=== PATIENT | female | born 1960 | race Caucasian/White ===

== ENCOUNTER 2021-03-21 13:34 | Emergency (ER) | payer OTHER ==
[2021-03-21 21:05] VITALS: BP 154/87
== END 2021-03-21 21:08 ==
LOC: ER 13:34
PROVIDERS: Nurse Practitioner
DX: F91.9 Conduct disorder, unspecified (principal); Z20.822 Contact with and (suspected) exposure to COVID-19; Z88.8 Allergy status to other drugs, medicaments and biological substances

== ENCOUNTER 2021-03-21 15:08 | Inpatient (IN) | payer OTHER ==
[~2021-03-21] VITALS: Ht 160 cm; Wt 83.9 kg
--- NOTE | 2021-03-21 22:52 | NUR ---
Pt admitted to unit from ED at 2112 this shift. Pt was transported to unit via w/c but is ambulatory. Pt expressed desire to voluntarily sign into unit for treatment for anxiety and "Want to get my medications straightened out". Pt is calm et cooperative. AOX4. VSWNL. Health assessment and skin assessment with no abnormalities noted at present time. Ambulates ad agatha with steady gait. Health history obtained and pt appears to be a valid historian. Hospitalist GEAR GRINDER and wallet assembler notified of pt admission to unit. Orders obtained and entered. Pt was given a tour of the unit and informed of schedule and rules. Pt verbalized understanding. Discussed that pt was being admitted for panic disorder for multiple visits to ED in the past week. Pt explains that she has been trying to get in with a psychiatrist but cannot get an appt. quickly so ends up going to the ED for treatment or calling her PCP. Pt expresses a desire to get her medications right so that she "doesn't have to feel like this anymore. I want to feel normal". Pt denies SI/HI/AVH at present time. Currently resting in bed with eyes open. Will continue to monitor per unit protocol.
[2021-03-21 23:48] VITALS: BP 138/91
--- NOTE | 2021-03-22 05:24 | NUR ---
Assumed care of patient at 2112 this shift upon admission to unit. Pt calm et cooperative this shift. Took medications whole without difficulty. Ambulates the halls ad agatha with steady gait. Independent with all cares and toileting. Isolated in room most of shift. Pt spoke with family et gave them code for calling the unit. HS meds were given to patient when entered by pharmacy due to patient's belief that she would be unable to sleep this shift without medication. Pt denies SI/HI/AVH at present time. Currently resting in bed with eyes closed. Will continue to monitor per unit protocol.
--- NOTE | 2021-03-22 07:15 | NUR ---
03-22-2021--699--First met patient when she was walking down the ulloa displaying a steady gait but was visibly shaking. She was walking trying to get her anxiety under control. We tried deep breathing as it appeared she was breathing too fast and could hyperventilate. She has a difficult time keeping her breathing slow. (When she is more calm and can concentrate we will practice deep breathing agian.) Spoke with RNKalee re: medications for patient. Patient states she already has had her seroquel. The RN stated she didn't have meds prescribed until 8:00 AM. Spoke to Yumiko TORRES who offered patient a walker to use if she was feeling unsteady. She declined. RN explained the BISQUE KILN PLACER will see her as soon as she comes in and might be able to give her something to calm her. Patient reports this has been going on for at least 6 months. I inquired if she had a doctor or therapist. She said her doctor and her therapist told her "you just need to learn how to control it yourself". She reports she feels afraid but can't pinpoint any thing she is afraid of. I told her I would be back to see her later and we would do an assessment. I will read the patient's chart.
[2021-03-22 09:42] VITALS: BP 121/79
--- NOTE | 2021-03-22 10:40 | NUR ---
03-22-2021--1000--Met with patient to gather information for the completion of a psychosocial assessment. Dx from referring hospital was "anxiety". Patient states she has had a dx of MDD and NATHAN for at least 30 years. She reports she has a sister and brother who have both had an anxiety disorder. She states her sisters lasted for approx. 5 years and she is afraid she is going to feel anxious for a long time like that. She resides with her 84 y/o mother and has two daughters. Her mother Vikki Wilson ([phone]) is listed as the ER contact. She talked to her mother and daughters last night and gave them the security code. We discussed having her sign a DPOA with someone close to her. Peterson came in to get her to go to a group and provided her with a brochure. I will talk to her at a later time to discuss completing this document. She is the DPOA for her mother and so is comfortable with what it means. Past medical hx includes Anxiety, Depression, GERD and HTN. She states her anxiety hasn't been this bad before. She has a therapist, sample case porter and a psychiatrist from [facility]. Her therapist is Joycelyn Huff. Her psychiatrist is Dr. Nath. She reports she doesn't remember her CM's name but she did attend the [facility] program (out patient group) either on Fridays or Mondays from to . She states since her anxoiety has become more severe she hasn't gone. They told her she had to be able to sit still. Her PCP is Dr. Tompkins. She states she has gone to him to get psychotropics because she can't get in to see her psychiatrist. She denies SI/HI attempts or plans. She continually paced during our session and stated repeatedly "I feel so scared. I feel terrified". "Do you have to leave?" "I'm scared". She couldn't identify what she was afraid or scared of. She reports her therapist was doing cognitive/behavioral therapy with her and she tried EMDR. She states "they didn't work on me". (Worker suggests Dialectal Behavioral Therapy--DBT--may be more effective with this patient.) Another dx to consider with this patient is a Cluster B Personality Disorder, Borderline Personality Disorder--F60.3 (which is treated most effectively with DBT). She displays characteristics such as impulsivity, frantic efforts to avoid abandonment (real or imagined), affective instability, marked affective instability and marked reactivity of mood (anxiety episodes) among other indicators. She reports having been three times. Patient reports no abuse in her family of origin or in other realtionships in which she has been involved. She denies any chronic pain or traumatic incidents that could have precipitated this most recent anxiety episode.
--- NOTE | 2021-03-22 13:14 | NUR ---
Assumed pt care at 0700. Pt was alert and oriented x4. Assessments completed, vss. Anxious and restless upon assesments. Denies si/hi. Denies pain. Took meds whole no difficulty noted. Ambulates with a steady gait. Continent of bowel and bladder. Makes needs known to staff. Pt is up at agatha. Independent with care. At this time pt is ambulating the hallways. Will continue to monitor pt.
--- NOTE | 2021-03-22 14:31 | NUR ---
03-19-2021--1230--Made a referral to [facility] for patient. Her information in her hard chart states she has [employer]. Patient states she receives disability but isn't sure of it is SSI or SSDI. Stated her case work aide at [facility] (whose name she can't remember) had been helping her fill out paperwork for Medicaid or insurance she didn't remember which. Requested assistance in determining if she already has Medicaid or not.
[2021-03-22 19:45] VITALS: BP 139/94
--- NOTE | 2021-03-23 05:35 | NUR ---
Assumed care of patient at 1900. Pt calm et cooperative this shift. Took medications whole without difficulty. Ambulates the halls ad agatha with steady gait. Spoke on the phone with several relatives early in the shift. Spent early part of shift socializing with peers in dayroom. VSWNL. Health assessment with no abnormalities noted at present time. Pt denies SI/HI/AVH at present time. PRN Seroquel given with HS meds for anxiety. Currently resting in bed with eyes closed. Will continue to monitor per unit protocol.
[2021-03-23 09:31] VITALS: BP 121/56
--- NOTE | 2021-03-23 09:41 | NUR ---
Patient has been anxious this morning. She said she is afraid she will never get better. Patient said walking helps with her anxiety. She has been pacing the halls every so often. She took her morning medications whole with no difficulty. Patient has been in the dayroom, aside from when she is walking the halls. She is participating in the morning group session. Her vital signs are WNL. She denies having pain, but said that her legs are sore from all the pacing she has been doing. Denies thoughts of SI/HI. Will continue to monitor patient for further changes.
[2021-03-23 19:19] VITALS: BP 104/64
--- NOTE | 2021-03-24 00:42 | NUR ---
At the onset of shift mgr pt was sitting calmly in day room socializing with female peer. This shift pt was pleasant and cooperative. Pt endorsed anxiety, but stated it was better than the previous shift. Pt was able to sit and socialize instead of pace the unit. Pt did request hyrdroxyzine with her HS meds. Pt was compliant with medication and vital signs. Pt denied depression, SI, HI and AVH. Pt is a low fall risk. Will continue to monitor.
[2021-03-24 08:37] VITALS: BP 122/78
--- NOTE | 2021-03-24 09:54 | NUR ---
New admit to [facility] for panic disorder. Initial consult for pt reporting decreased appetite. Ate 25% of initial meal on unit but now eating 75-100% of meals. No reported wt loss. BMI 32. On regular diet. Presents at low nutrition risk
[2021-03-24 17:42] VITALS: BP 136/84
--- NOTE | 2021-03-24 18:06 | NUR ---
REQUESTED AND RECEIVED VISTARIL 50MG PO PRN AT 0830 FOR ANXIETY RATED A 10/10-ENDORSING THOUGHTS OF DOOM,SHORTNESS OF BREATH,FEELING "SHAKEY ON THE INSIDE" AND INABILITY TO SIT STILL ANXIETY SYMPTOMS. INITIALLY NOT RECEPTIVE TO ATTEMPTING ANY DEEP BREATHING OR GROUNDING ACTIVITIES BUT WITH SUPPORT DID SIT AND DO DEEP BREATHING WITH THIS NURSE FOR 3-4 MINUTES BEFORE GETTING UP TO RESUME PACING IN HALLWAYS. DENIES SI/SH. HAS ATTENDED ALL SCHEDULED ACTIVITIES WITH GOOD LEVEL OF PARTICIPATION.-SOCIAL WITH FEMALE PEERS DURING FREE TIME AND ABLE TO ID THAT VISITING WITH OTHERS HELPS. APPEARS LESS ANXIOUS/COMFORTABLE IN MILL AND ABLE TO SIT AND DO WORD SEARCHES,WATCH TV OR LOOK AT MAGAZINE WITH FEMALE PEER FOR LONG STRETCHES OF TIME. GAIT STEADY WITHOUT ASSISTIVE DEVICES.
--- NOTE | 2021-03-24 18:15 | NUR ---
AT APPROX 1015 WAS DIRECTED BY STAFF TO ROOM D/T MEDICAL EMERGENCY ON UNIT WHICH TOOK PLACE IN DAYROOM WITH ALL PTS PRESENT AT GROUP- WHEN STAFF ENTERED ROOM 5-10 MINUTES LATER TO COMMPLETE ROUNDS WAS FOUNDS CRYING LOUDLY IN ROOM-SITTING IN CORNER OF BATHRROM ROCKING BACK AND FORTH-STATES "I'M HAVING A PANIC ATTACK-ITS TOO STRESSFUL HERE-MY ANXIETY WILL NEVER GET BETTER HERE-CAN I SIGN MYSELF OUT NOW" DID CALM AFTER APPROX 30-40 MINUTES 1;1 WITH NURSING STAFF AND EVENTUALLY ACKNOWLEDGES THAT SHE NEEDS TO STAY IN HOSPITAL UNTIL FEELING MORE STABLE. DID ATTEMPT DEEP BREATHING BUT CONTINUES TO RATE ANXIETY 10/10-REQUESTING PRN VISTARIL EXPLAINED IT WAS TO EARLY TO GIVE AND BEGAN TO [place]-DR WAGNER CONTACTED AND ORDERS RECEIVED FOR VSTARIL 50MG PO X1 NOW GIVEN AT APPROX 1110 WITH PT REPORTED DECREASE IN ANXIETY TO A 6.5 RATING APPROX 1 HR LATER.
[2021-03-24 21:03] VITALS: BP 130/87
--- NOTE | 2021-03-24 23:32 | NUR ---
At onset of night order selector pt was sitting in day room watching TV. This shift pt was alert and oriented x4. Pt spent free time socializing with a female peer. Pt appeared anxious. Pt was cooperative with medications and vital signs. Pt was tearful when speaking with nurse. Pt explained that her anxiety is worse in the morning and she is already worried about how she will feel when she wakes up tomorrow. RN explained to pt that she does have hydroxyzine PRN to help with morning anxiety and if she feels she needs the medication she can ask for it. Pt also requested trazodone stating that she has been taking it for so long that she cannot fall asleep without it. RN received a one time order for 100mg Trazodone. Overall, pt was pleasant and cooperative. Pt is a low fall risk. Will continue to monitor.
[2021-03-25 07:30] VITALS: BP 108/72
--- NOTE | 2021-03-25 13:34 | NUR ---
Asleep when entered room. Alert and orientated X4. States she is anxious 12/27, requesting meds. Explained that she would be receiving meds at 0800. Denies SI/HI. Unable to give reason for anxiety. Quetiapine given later in AM for anxiety 01/26. Dr. Carr notified, will meet with pt. Breath sounds clear. Reg HR auscultated. Color pink with brisk capillary refill and palpable peripheral pulses. Independent with voiding. Active bowel sounds over soft, rounded abdomen. Ambulates with regular, steady gait. Daughter called for update. Spoke with pt, would like for me to give update. Currently participating in group. Sitting quietly at table most of AM.
[2021-03-25 19:45] VITALS: BP 108/72
[2021-03-25 21:56] VITALS: BP 145/92
--- NOTE | 2021-03-26 00:20 | NUR ---
PATIENT CARE WAS RESUMED AT 1900. SHE IS ALERT AND ORIENTED. MODERATED ASSIST WITH CARE.ABLE TO VERBALISE SOME CONCERN. SHE IS CONTINENT OF BOWEL AND BLADDER. DENIES PAINS/SI/AVH/HI.LUNGS ARE CLEAR BS ACTIVE X4 QUADS.SHE TOOK HER MEDS WHOLE.BED IS LOW AND LOCKED. SHE C/O MORNING ANXIETY AND A GOAL TO OVERCOME IT. CONTINUE CARE AND MONITOR
[2021-03-26 08:28] VITALS: BP 147/101
[2021-03-26 10:20] VITALS: BP 147/101
--- NOTE | 2021-03-26 12:28 | NUR ---
RESUMMED CARE FROM OVERNIGHT SHIFT THIS AM, PATIENT SITTING IN DAY ROOM QUIET. PATIENT ALERT ORIENTED TIMES 4 PATIENT DENIES SI/HI/AH/VH AT PRESENT. PATIENT DENIES DEPRESSION BUT HAS ANXIETY WHICH SHE RATES A 10; SHE STATES SHE DOES NOT KNOW WHY SHE HAS ANXIETY. PATIENTS ABDOMEN SOFT BOWEL SOUNDS PRESENT, PATIENTS LUNGS CLEAR. PATIENT CALM COOPERATIVE PARTICIPATES IN GROUPS WILL CONTINUE TO MONITOR PATIENT FOR SAFETY AND BEHAVIORS.
--- NOTE | 2021-03-26 17:22 | NUR ---
ELSIE was able to to speak to the Pt's therapist at [facility], Joycelyn Huff. Joycelyn informed the Pt did not have a CM. Joycelyn is willling to see the Pt 2x per week if unable to get into a PHP. Joycelyn believed the Pt was in an IOP but was unsure. Joycelyn stated the Pt had and appointment today but rescheduled to 04/01/2021 @12. Pt sees Steve Morales APRN for medication management. A follow up appointment was scheduled for 04/08/2021 @ 0915. ELSIE was informed that a recommendation would need to be on the Pt's discharge for IOP or PHP and [facility] would get the Pt signed up for their program Pt will discharge home 03/28/2021 @ 1300. Pt'f family will transport
[2021-03-26 19:37] VITALS: BP 130/81
[2021-03-26 19:42] VITALS: BP 130/81
--- NOTE | 2021-03-27 02:50 | NUR ---
PATIENT CARE WAS STRATED 1900. SHE WAS SITTING IN THE DAY AREA SOCIALIZING WITH HER ROOMATE. SHE IS ABLE TO VERBALIZE HER CONCER. SHE IS CONTININET OF BOWEL AND BLADDER. AMBULATES AND SHE TAKES HER MEDS WHOLE. SHE DENIES PAINS,AVH/SI/HI. CAME BY AND VISIT WITH HER WITH SOME NEW ORDER FOR MED ADJUSTMENT.SHE COMPLAINED OF HER MORNING ANXIETY. BED IS LOW AND LOCKED. CONTINUE CARE AND MONITOR
[2021-03-27 07:15] VITALS: BP 116/64
[2021-03-27 07:20] VITALS: BP 116/64
--- NOTE | 2021-03-27 16:10 | NUR ---
States she is very anxious this AM, wants to talk with Dr. Carr. Alert and orientated X4. Denies SI/HI. Unable to identify souce of anxiety. States she has been anxious for months. Ambulates with regular, steady gait. Breath sounds clear. Reg HR auscultated. Color pink with brisk capillary refill and palpable peripheral pulses. Independent with voiding. Active bowel sounds over soft rounded abdomen. 1 mg clonazapam given PO per order after minimal results with prn dose of hydroxine. States it helped her anxiety. Sitting in day room most of day. No s/o distress. que
[2021-03-27 18:41] VITALS: BP 136/96
[2021-03-27 19:52] VITALS: BP 136/96
--- NOTE | 2021-03-28 02:59 | NUR ---
PATIENT CARE WAS RESUMED AT 1900.SHE IS ALERT AND ORIENTED.AMBULAYES AND ABLE TO VERBALIZE HER CONCERNS. SHE DENIES PAINS/SI/AVH/HI. SHE IS CONTINENT OF BOWEL AND BLADDER. LUNGS ARE CLEAR BS ACTIVE X4 QUADS. PATIENT COMPLAINED OF ANXIETY AND SHE MEDICATION WITH GOOD EFFECT. SHE SOCIALIZES WITH HER ROOM MATE IN THE DAY AREA. GAIT IS STEADY. BED IS LOW AND LOCKED.
[2021-03-28 11:13] VITALS: BP 130/71
[2021-03-28 14:49] VITALS: BP 130/71
--- NOTE | 2021-03-28 18:25 | NUR ---
Assummed patient care this morning from overnight shift. Client was in activity area watching tv and resting. Client was oriented 4x, and presented in an anxious and pleasant deameanor. Client denied depression, but did express anxiety 10/10 per client report. Client's klonipin was changed to TID from BID by Dr. Carr to help with anxiety. Client expressed that this was calming to her and helped with her anxiety. Client was encouraged to use coping skills at this time, and provided with therapeutic communication to help ease anxiety. Client denied pain at this time. Client also denied any audio or visual hallucinations. Client denied any suicidal or homicidal intent. Bowel sounds were present, and lung sounds were clear. Last bowel movement was 12/8 per report. Client is scheduled to go home Wednesday and is staying the weekend to help control her anxiety. No further concerns at this time.
[2021-03-28 19:12] VITALS: BP 126/82
--- NOTE | 2021-03-29 05:46 | NUR ---
Assumed care of patient at 1900. Pt calm et cooperative this shift. Took medications whole without difficulty. Ambulates the halls ad agatha with steady gait. Spent most of the early part of shift socializing with peers in dayroom. VSWNL. Health assessment with no abnormalities noted at this time. Pt denies SI/HI/AVH at present time. PRN Trazodone given with HS meds per pt request for sleep. Will continue to monitor per unit protocol.
[2021-03-29 09:48] VITALS: BP 147/83
--- NOTE | 2021-03-29 11:31 | NUR ---
Alert and orientated X4. States she is anxious about the same as yesterday AM. States she thinks clonopin is helping. Unable to identify source of anxiety. States she has not had BM since Wednesday and would like something gentle to address. Denies SI/HI. Breath sounds clear. Reg HR auscultated. Color pink with brisk capillary refill and palpable peripheral pulses. No edema noted. Independent with voiding. Active bowel sounds over soft, rounded abdomen. Ambulates with regular, steady gait.
[2021-03-29 16:05] VITALS: BP 129/73
[2021-03-29 19:17] VITALS: BP 120/61
--- NOTE | 2021-03-30 05:27 | NUR ---
Assumed care of pt at 1900. Pt calm et cooperative this shift. Took medications whole without difficulty. Ambulates the halls ad agatha with steady gait. Spent short amount of time at beginning of shift socializing with peers in dayroom. Refusing Buspirone at present time as she believes that it may set back her progress. Attempted to reassure pt that it will most likely enhance recovery due to the long acting nature of the medication but pt does not want to take at this time. PRN Trazodone given for sleep with HS meds per request. VSWNL. Health assessment with no abnormalities noted at present time. Pt denies SI/HI/AVH at present time. Currently resting in bed with eyes closed. Will continue to monitor per unit protocol.
[2021-03-30 10:20] VITALS: BP 126/76
[2021-03-30 15:14] VITALS: BP 126/76
--- NOTE | 2021-03-30 17:20 | NUR ---
Assumed pt care from overnight shift this am. Client was in activity area resting during this time. [facility], stating that she had high anxiety and that she needed her medications to help calm her down. Client asked to use coping skills and deep breathing in addition to medications to help with anxiety, as client has had anxiety medication previously increased and still voices anxiousness and avoids using coping mechanisms. Client stated that she would try these at this time. Client was AO x4 during this time. During assessment, client denied depression, though stated anxiety was a 10/10. Client denied to take buspar, new anxiety medication, as she voiced concerns that she would not be able to continue other anxiety medications "if this one worked." Client was encouraged to express concerns and fears to provider tomorrow as well as to try medication, the latter of which client continued to decline. Client denied visual or audio hallucinations at this time. Client also denied any suicidal or homicidal thoughts. Client lung sounds were clear and bowel sounds were present. Client stated during assessment that she had not had a bowel movement since this Wednesday, the . Client's last documented bowel movement was the . Dr. Newsome was notified of this and nursing instructed to give MOM again for bowel movement. Client later voiced small bowel movement during this shift. Client later stated that she wanted to show staff crack on her heel. Small inch long crack of 1mm was noted on right heel. Heel cleaned with iodine and padded bandage put on foot to ease discomfort. Client continues to voice anxiety at this time, though it is decreased and client is using more coping skills. No other concerns at this time. Client continued to state anxiety after assessment and was given prn seroquel. Nursing went over client's medication and times to assist client with anxiety management and coping.
[2021-03-30 19:40] VITALS: BP 124/79
[2021-03-30 20:04] VITALS: BP 124/79
--- NOTE | 2021-03-31 02:16 | NUR ---
PATIENT CARE WAS RESUMED AT 1900. SHE IS ALERT AND ORIENTED AND ABLE TO VERBALIZE HER NEEDS AND CNCERNS. SHE AMBULATES AND CONTININET OF BOWEL AND BLADDER.LUNGS ARE CLEAR BOWEL SOUND ACTIVE X4 QUADS. SHE TO HER MEDS WHOLE AND SHE DENIES PAINS /SI/AVH/HI. SHE COMPLAINED OF AM ANXIETY AND STATES THAT SHE IS GOING HOME THIS AM. SHE IS IN BED AND BED IS LOW AND LOCKED. Q 12MINUTES CHECK IS ONGOING, CONTINUE CARE
[2021-03-31 06:23] VITALS: BP 124/79
--- NOTE | 2021-03-31 09:01 | NUR ---
Followup: eating less for breakfast past few days and 50-100% other 2 meals. No new wt. Note possible discharge soon. Remains low nutrition risk
[2021-03-31 09:05] VITALS: BP 112/77
[2021-03-31] MEDS ORDERED: CLONAZEPAM 1 MG1 M1 PO (09:05)
[2021-03-31] MEDS ORDERED: CYMBALTA60 MG PO (09:06)
[2021-03-31] MEDS ORDERED: SEROQUEL 100 M100 M1 PO (09:08)
[2021-03-31] MEDS ORDERED: REQUIP 1 MG TABL1 M1 PO (09:08)
[2021-03-31] MEDS ORDERED: TRIAMTERENE-HC1 EAC1 PO (09:10)
[2021-03-31] MEDS ORDERED: COLACE 100 MG100 MG PO (09:10)
[2021-03-31 12:11] VITALS: BP 112/77
--- NOTE | 2021-03-31 13:10 | NUR ---
HAS BEEN ANXIOUS THROUGHOUT AM REGARDING DISCHARGE "I DON'T THINK THOSE MEDICINES ARE STRONG ENOUGH" GIVEN FEEDBACK AND SUPPORT -EDUCATION RE FACT THAT IT IS NORMAL TO HAVE INCREASED ANXIETY AT THE TIME OF DC. DENIES SI,SH,HI-KLONOPIN 1MG PO X1 NOW AT 1245 PER MD ORDER PRIOR TO DC-DOES REPORT FEELING DECREASED ANXIETY AT TIME OF DC. DISCHARGED AT 1310 ACCOMPNIED BY STAFF-PERSONAL BELONGINGS-ACCOMPNIED BY NURSING STAFF TO [facility]-PRIVATE VEHICLE.
--- NOTE | 2021-04-01 08:27 | D ---
[facility] [place] [address] DISCHARGE SUMMARY Name: JOVANI ESTEVEZ Room #: 520A-A DIS IN M.R.#: [id number] Admission: 03/21/21 Attend Phys: Jesus Carr DO Discharge: 03/31/21 Date of : 62 Report #: [id number] THIS REPORT FOR: cc: Juan C Tompkins MD, David E. MD Kerstein,Jesus Hernandez DO ~ DATE OF SERVICE: 03/31/2021 INPATIENT PSYCHIATRIC DISCHARGE SUMMARY ATTENDING PSYCHIATRIST: Jesus Carr D.O. COMMUNICATIONS SENIOR ASSOCIATE: Jesus Newsome M.D. DISCHARGE DIAGNOSES: 1. Major depressive disorder, unspecified, improved. 2. Panic disorder, slight improvement. The patient is discharging to her home. She actually lives with her mother. Aftercare for this patient is going to be at [facility] where she is an established client. Those arrangements include therapist appointment 04/01/2021 at 12:00 noon with Joycelyn. A prescription was given for intensive outpatient programming at [facility]. Also, she sees Steve butler for medication management 04/08/2021 at 1915. DISCHARGE DIET: Regular. ACTIVITY LEVEL: As tolerated. No driving, no alcohol, no illicit drugs. The patient is a nonsmoker, so she has reported to me. DISCHARGE MEDICATIONS: Clonazepam 1 mg oral daily at 0900, 1500, and 2100. The patient was given a quantity 25 of this to hold her till her 04/08/2021 medication appointment. Duloxetine 60 mg oral daily for depression. This had been reduced from as high as 120 mg due to concerns about the norepinephrine effect of duloxetine to treat anxiety. She is on Seroquel 100 mg oral daily at 0900, 1500, and 1700. She is on Requip 1 mg oral 3 times a day for restless legs syndrome, this was started by her hospitalist. She is on the dual action diuretic triamterene/hydrochlorothiazide 37.5/25 mg oral daily. She is on docusate 100 mg oral twice daily for bowel motility, hold if diarrhea. The patient was given suicidal crisis hotline information. The patient denies having weapons, firearms, lethal means in her home. LABORATORY DATA: Significant laboratories this admission, TSH 1.195, COVID serology negative on the , , and . The patient had some outside lab work done where she was admitted from which I believe is [facility]. [address] [address] DISCHARGE SUMMARY Name: JOVANI ESTEVEZ Room #: 520A-A [facility] IN ..#: [id number] Admission: 03/21/21 Attend Phys: Jesus Carr DO Discharge: 03/31/21 Date of : 62 Report #: [id number] REASON FOR ADMISSION: A 60-year-old female admitted due to underlying anxiety, panic attacks, lives with her 81-year-old mother. The patient was initially pacing in the area. She is unable to stay seated. She reports she is scared. She is scared of never getting better. She reports symptoms worsened since October. She was laid off from her job in May of this year. She has had numerous medication trials including Geodon, Valium, Ativan, Klonopin, Rexulti, Seroquel, gabapentin, propranolol, BuSpar, Cymbalta, all with inadequate effect. HOSPITAL COURSE: The patient was admitted to [facility] Unit. She was started on a regimen of Seroquel 100 mg at bedtime and continued on Cymbalta 120 mg daily as well as Seroquel 50 mg b.i.d. Over the course of the hospitalization, the patient's Cymbalta was decreased to 90, then 60 mg. The patient would tend to have improvement and then relapsed to 1 day better, 1 day back. We tried giving her Seroquel very early in the morning like 6:00-6:30, that did not lessen things. There was collateral obtained by our social organization professor that the patient has difficulty integrating coping skills, therapeutic techniques and tends to be on the medication-seeking side of things. I personally gave several efforts to flush out what is occupying the patient's mind and trigger factors with little success. On the day of discharge, the patient was not suicidal, homicidal, felt to be ready for step-down. Also, the therapeutic milieu of the [facility] is not in keeping with what I think would best serve the patient and her future admissions. I think it would be reasonable to have her go to an adult psychiatry unit, which would have group therapies in line with what she is dealing with rather than a heavy dementia population. PHYSICAL EXAMINATION: VITAL SIGNS: On day of discharge, temperature 36.1, pulse 100, respirations 18, BP 122/77, O2 sat 94%. MUSCULOSKELETAL: Normal gait and station, unkempt with appearance. MENTAL STATUS EXAMINATION: This is a well-developed, age-appearing female. Attention fair. Concentration fair to limited. Speech soft, normal rate. Thought process: Linear and goal directed. Thought content, focused on panic attacks. The patient did make a request to get an extra Klonopin dose prior to discharge. She denied SI, AH and, auditory or visual type hallucinations. Memory not formally tested. Mood and affect were congruent, constricted, diminished range. Insight limited/ judgment fair. Fund of knowledge is at least average. [facility] [address] [place] [address] DISCHARGE SUMMARY Name: JOVANI ESTEVEZ Room #: 520A-A DIS IN M.R.#: [id number] Admission: 03/21/21 Attend Phys: Jesus Carr DO Discharge: 03/31/21 Date of : 62 Report #: [id number] PROGNOSIS: For this patient is guarded given her unemployed and uninsured status, supposedly on disability. The patient is Medicaid pending in [place]. <ELECTRONICALLY SIGNED> By: Jesus Carr DO 04/01/21 [id number] Jesus Carr DO /nt
== END 2021-03-31 13:00 | disposition home or self-care (01) | DRG 885 ==
LOC: SBH
PROVIDERS: ADMIT Psychiatry & Neurology Psychiatry; ATTEND Psychiatry & Neurology Psychiatry
DX: F32.1 Major depressive disorder, single episode, moderate (principal); F41.0 Panic disorder [episodic paroxysmal anxiety]; F41.9 Anxiety disorder, unspecified; I10 Essential (primary) hypertension; E66.01 Morbid (severe) obesity due to excess calories; G47.00 Insomnia, unspecified; G25.81 Restless legs syndrome; Z20.822 Contact with and (suspected) exposure to COVID-19; Z88.0 Allergy status to penicillin; Z88.2 Allergy status to sulfonamides; Z88.8 Allergy status to other drugs, medicaments and biological substances; Z91.040 Latex allergy status; Z83.3 Family history of diabetes mellitus; Z82.49 Family history of ischemic heart disease and other diseases of the circulatory system; Z81.8 Family history of other mental and behavioral disorders; Z82.3 Family history of stroke; Z68.32 Body mass index [BMI] 32.0-32.9, adult; Z79.899 Other long term (current) drug therapy; Z23 Encounter for immunization
CPT/HCPCS: 10880